=== PATIENT | female | born 1985 | race Caucasian/White ===

== ENCOUNTER 2017-01-24 01:57 | Emergency (ER) | payer MEDICAID ==
[~2017-01-24] VITALS: Ht 160 cm; Wt 71.7 kg
[2017-01-24] MEDS ORDERED: MORPHINE SULFATE 4 MG/ML, 1ML ONE (02:41)
[2017-01-24] MEDS ORDERED: ONDANSETRON 2MG/ML, 2ML ONE (02:41)
[2017-01-24] MEDS ORDERED: MORPHINE SULFATE 4 MG/ML, 1ML IVPush PRN (03:00)
[2017-01-24] MEDS ORDERED: ONDANSETRON 2MG/ML, 2ML IVPush ONE (03:00)
[2017-01-24] MEDS ORDERED: SODIUM CHLORIDE 0.9% 1,000ML IVBOLUS ONE (03:00)
[2017-01-24 03:44] LABS: ASPARTATE AMINO TRANSFERASE 16 U/L (15-37); BLOOD UREA NITROGEN 15 mg/dL (7-18)
[2017-01-24 05:10] VITALS: BP 129/76
== END 2017-01-24 05:14 | disposition home or self-care (01) ==
LOC: ED 05:10
DX: K80.20 Calculus of gallbladder without cholecystitis without obstruction (principal)
CPT/HCPCS: 36415; 76700; 80053; 83690; 84703; 85025; 96361; 96374; 96375; 99285; J2405; J7030

== ENCOUNTER 2017-08-31 22:58 | Emergency (ER) | payer MEDICAID ==
[~2017-08-31] VITALS: Ht 160 cm; Wt 73.0 kg
[2017-08-31 22:59] VITALS: BP 150/93
[2017-08-31] MEDS ORDERED: LIDOCAINE 1%, 20ML ONE (23:23)
[2017-08-31] MEDS ORDERED: LIDOCAINE 1%, 20ML SQ ONE (23:30)
[2017-08-31] MEDS ORDERED: BACITRACIN ZINC OINT 500U/GM, 0.9 GM ONE (23:36)
== END 2017-09-01 00:43 | disposition home or self-care (01) ==
LOC: ED 23:59
DX: S01.112A Laceration without foreign body of left eyelid and periocular area, initial encounter (principal); X58.XXXA Exposure to other specified factors, initial encounter; Y93.89 Activity, other specified; Y92.009 Unspecified place in unspecified non-institutional (private) residence as the place of occurrence of the external cause; Y99.9 Unspecified external cause status
CPT/HCPCS: 12052; 99284; J3490

== ENCOUNTER 2017-09-10 19:26 | Emergency (ER) | payer MEDICAID ==
[~2017-09-10] VITALS: Ht 160 cm; Wt 72.0 kg
[2017-09-10 19:28] VITALS: BP 137/76
== END 2017-09-10 20:21 | disposition home or self-care (01) ==
LOC: ED 20:15
DX: S01.81XD Laceration without foreign body of other part of head, subsequent encounter (principal)
CPT/HCPCS: 99282

== ENCOUNTER 2019-08-29 13:57 | Emergency (ER) | payer MEDICAID ==
[~2019-08-29] VITALS: Ht 160 cm; Wt 65.0 kg
[2019-08-29] MEDS ORDERED: SODIUM CHLORIDE FLUSH 10ML SYR IVF ONE (15:00)
--- NOTE | 2019-08-29 15:37 | NUR ---
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
--- NOTE | 2019-08-29 15:56 | NUR ---
First contact with pt. Pt c/o middle low back pain radiating down her L leg. Pt denies injury, no urinary sx. Pt positioned for comfort in bed, continuous oxygen and BP Monitors applied, all safety measures observed.
[2019-08-29] MEDS ORDERED: KETOROLAC 30 MG/1 ML IM ONE (16:30)
[2019-08-29] MEDS ORDERED: ONDANSETRON ODT 4 MG PO ONE (16:30)
--- NOTE | 2019-08-29 17:26 | NUR ---
ASKED FOR PAIN MEDS
[2019-08-29] MEDS ORDERED: HYDROmorphone 1 MG/ML, 1ML INJ IM ONE (18:00)
[2019-08-29 18:04] LABS: HCG UR SG 1.013 (1.003-1.030); MICROSCOPIC AUTO
[2019-08-29 18:07] LABS: CULTURE INDICATED? NO
[2019-08-29] MEDS ORDERED: ONDANSETRON ODT 4 MG ONE (18:09)
[2019-08-29] MEDS ORDERED: KETOROLAC 60 MG/2 ML ONE (18:09)
[2019-08-29] MEDS ORDERED: HYDROmorphone 1 MG/ML, 1ML INJ ONE (18:09)
--- NOTE | 2019-08-29 18:20 | NUR ---
TASK RN: PT MEDICATED FOR BACK/LEG PAIN 05/05. DR ELLIOTT IN TO EXPLAIN TEST RESULTS. PT DENIES ADDITIONAL NEEDS AT THIS TIME.
[2019-08-29] MEDS ORDERED: DIAZEPAM 5 MG/ML, 2ML ONE (20:11)
--- NOTE | 2019-08-29 20:26 | NUR ---
PT MEDICATED PER MAR FOR PAIN.
[2019-08-29] MEDS ORDERED: DIAZEPAM 5 MG/ML, 2ML IM ONE (20:30)
--- NOTE | 2019-08-29 21:18 | NUR ---
PT D/C WITH D/C SUMMARY AND SCRIPTS IN CARE OF . PT DENIES ANY OTHER NEEDS PERTAINING TO THIS VISIT. CONTROLLED SUBSTANCE FORM SIGNED AND PLACED WITH PT CHART. PT AMBULATES TO REGISTRATION DESK WITH SLOW AND SHUFFLING GAIT. PT QUESTIONS ANSWERED PRIOR TO PT D/C
[2019-08-29 21:19] VITALS: BP 112/62
== END 2019-08-29 21:20 | disposition home or self-care (01) ==
LOC: ED 21:15
DX: M54.16 Radiculopathy, lumbar region (principal); R20.8 Other disturbances of skin sensation
CPT/HCPCS: 72110; 81001; 81025; 96372; 99284; J1170; J1885; J3360; J7512; Q0162